=== PATIENT | female | born 1985 | race Caucasian/White ===

== ENCOUNTER 2022-12-03 22:31 | Emergency (ER) | payer BC, SELFPAY ==
[2022-12-03 22:35] VITALS: BP 98/56; PULSE 56; RESP 18; TEMP 36.2; O2SAT 98; BMI 30.2
[2022-12-03] MEDS: ACETAMINOPHEN 325 MG TABLET 975 MG PO (22:54)
[2022-12-03] MEDS: SODIUM CHLORIDE 0.9% 1,000 ML 1000 ML IV ×2 (22:55→23:50)
--- NOTE | 2022-12-03 22:57 | DI.US.S_ITS ---
PROCEDURE: US OB <= 14 WEEKS FETUS INDICATIONS: PAIN OUTSIDE/PRIOR DATING DATA: Last menstrual period (LMP): 09/15/2022. LMP-based estimated date of delivery (CARLOS): 06/22/2023. First dating scan (date and location): Today's exam. Estimated date of delivery (CARLOS) from first dating scan: 07/03/2023. TECHNIQUE: Real-time scanning was performed of the fetus and maternal pelvic organs, with image documentation. Endovaginal scanning was also performed to better visualize the fetus and maternal ovaries. COMPARISON: None. FINDINGS: Embryo: Present, measuring 2.8 centimeters, corresponding to 9 weeks 5 days. Heart rate: Absent. Maternal organs: Ovaries not visualized due to gravid uterus and bowel gas. IMPRESSION: Findings diagnostic of demise, given crown-rump length measuring 2.8 centimeters and absent heart tones. We strive to produce accurate, complete, and clear reports of imaging services. To assist us in improving patient care, this report was composed using standard report templates and voice recognition software. Therefore, it may contain abnormal punctuation, insertions and/or omissions. Occasional wrong-word or sound-alike substitutions may occur. Though we review the report and make efforts to correct it, we do recommend that the report be read carefully in proper context to recognize any text inaccuracies. Dictated by: Ciro Velasquez M.D. on 12/04/2022 at 0:12 Approved by: Ciro Velasquez M.D. on 12/04/2022 at 0:14
[2022-12-03] MEDS: MORPHINE 2 MG/ML INJ IV (23:07)
[2022-12-03 23:10] VITALS: BP 97/56
[2022-12-03 23:18] VITALS: PULSE 54; RESP 12; O2SAT 99
[2022-12-03 23:21] LABS: Alanine Aminotransferase 17 IU/L (<35); Albumin 4.2 g/dL (3.5-5.0); Albumin Globulin Ratio 1.3 (1.0-2.8); Alkaline Phosphatase 42 U/L (38-126); Aspartate Aminotransferase 23 IU/L (14-36); BUN Creatinine Ratio 20.6 (6-22); Bilirubin Total 0.3 mg/dL (0.2-1.3); Blood Urea Nitrogen 13 mg/dL (7-17); Calcium 8.8 mg/dL (8.4-10.2); Carbon Dioxide 21 mmol/L (22-32); Chloride 103 mmol/L (98-107); Estimated Glomerular Filt Rate > 60 mL/min (>60); Globulin 3.3 g/dL (1.7-4.1); Glucose 134 mg/dL (70-100); HEMOLYSIS < 15 (0-50); Lipase 101 U/L (23-300); Potassium 3.5 mmol/L (3.4-5.1); Sodium 135 mmol/L (137-145); Total Protein 7.5 g/dL (6.3-8.2)
[2022-12-03 23:27] LABS: Add Manual Diff / Slide Review NO; Basophils Absolute Auto 0 /uL (0-100); Basophils Percent Auto 0.3 % (0-2); Eosinophils Absolute Auto 100 /uL (0-450); Hematocrit 37.4 % (36-46); Hemoglobin 12.7 g/dL (12.0-16.0); Lymphocytes Absolute Auto 3200 /uL (1100-4500); Lymphocytes Percent Auto 26.6 % (25-40); Mean Corpuscular Hemoglobin 30.4 PG (26-34); Mean Corpuscular Volume 89.4 fL (80-100); Monocytes Absolute Auto 600 /uL (0-900); Monocytes Percent Auto 5.3 % (3-14); Neutrophils Absolute Auto 8100 /uL (1500-7000); Neutrophils Percent Auto 66.8 % (50-75); Platelet Count 215 X10^3/uL (150-400); Red Blood Cell Count 4.18 X10^6/uL (4.0-5.2); Red Cell Distribution Width 13.4 % (11.6-14.8); White Blood Cell Count 12.2 X10^3/uL (4.5-11.0)
[2022-12-03 23:30] VITALS: BP 95/62; PULSE 57; RESP 15; O2SAT 96
--- NOTE | 2022-12-03 23:35 | ED.PREGNANCY ---
HPI - General Chief complaint: Abdominal Pain Stated complaint: severe cramping, 11 weeks Time Seen by Provider: 12/03/22 22:46 Source: patient Mode of arrival: Wheelchair Limitations: no limitations History of Present Illness HPI Narrative: Patient is a 37-year-old female presenting today with severe abdominal cramping. She denies any bleeding no back pain nausea or vomiting. She is had a couple of was diarrhea but significant. She is not dizzy or lightheaded. She is receiving OB care in [place] [facility] [place] She reports that it came today. Related Data Allergies Allergy/AdvReac Type Severity Reaction Status Date / Time Penicillins Allergy Verified 12/03/22 22:51 Review of Systems Review of Systems ROS Unobtainable: All systems reviewed & are unremarkable except as noted in HPI and below Exam Initial Vital Signs Initial Vital Signs: Vital Signs Temperature 97.1 F L 12/03/22 22:35 Pulse Rate 56 L 12/03/22 22:35 Respiratory Rate 18 12/03/22 22:35 Blood Pressure 98/56 L 12/03/22 22:35 Pulse Oximetry 98 12/03/22 22:35 Oxygen Delivery Method Room Air 12/03/22 22:35 GENERAL: Alert 37-year-old female appears very uncomfortable HEENT: Head atraumatic,EOMI, pupils reactive, face symmetric, moist mucous membranes CARDIOVASCULAR: Regular rate and rhythm without murmurs, rubs or gallops. RESPIRATORY: Breath sounds equal bilaterally, no wheezes rales or rhonchi. ABDOMEN: Soft, mild lower abdominal tenderness EXTREMITIES: Normal range of motion, no clubbing or edema. Neurovascularly intact NEUROLOGICAL: Alert and oriented x4. SKIN: Warm, dry, no laceration, no petechiae, no rashes or lesions. Course Orders Ordered: ED Orders 12/03/22 22:57 US OB <= 14 weeks fetus Stat 12/03/22 23:02 CBC Auto Diff [Complete Blood Count AUTO DIFF] Stat CMP [Comprehensive Metabolic Panel] Stat Lipase Stat 12/04/22 00:07 ABO RH Type Stat 12/04/22 02:28 Hemoglobin and Hematocrit Stat Discontinued Medications Acetaminophen (Acetaminophen 325 Mg Tablet) 975 mg PO NOW ONE Stop: 12/03/22 22:47 Last Admin: 12/03/22 22:54 Dose: 975 mg Documented By: KELLEY Hydromorphone HCl (Hydromorphone 0.5 Mg Inj) 0.5 mg IV NOW ONE Stop: 12/03/22 23:42 Last Admin: 12/03/22 23:50 Dose: 0.5 mg Documented By: KELLEY Hydromorphone HCl (Hydromorphone 0.5 Mg Inj) 0.5 mg IV NOW ONE Stop: 12/04/22 00:42 Last Admin: 12/04/22 00:47 Dose: 0.5 mg Documented By: EL Sodium Chloride (Normal Saline 0.9%) 1,000 mls @ 1,000 mls/hr IV BOLUS ONE Stop: 12/03/22 23:45 Last Infusion: 12/03/22 23:43 Dose: 0 mls/hr Documented By: Admin: 12/03/22 22:55 Dose: 1,000 mls/hr Documented By: KELLEY Sodium Chloride (Normal Saline 0.9%) 1,000 mls @ 1,000 mls/hr IV BOLUS ONE Stop: 12/04/22 00:40 Last Infusion: 12/04/22 01:22 Dose: 0 mls/hr Documented By: Admin: 12/03/22 23:50 Dose: 1,000 mls/hr Documented By: KELLEY Sodium Chloride (Normal Saline 0.9%) 1,000 mls @ 1,000 mls/hr IV BOLUS ONE Stop: 12/04/22 03:19 Last Admin: 12/04/22 02:38 Dose: 1,000 mls/hr Documented By: KELLEY Morphine Sulfate (Morphine 2 Mg/Ml Inj) 2 mg IV NOW ONE Stop: 12/03/22 22:58 Last Admin: 12/03/22 23:07 Dose: 2 mg Documented By: KELLEY Vital Signs Vital signs: Vital Signs - 8 hr 12/03/22 22:35 12/03/22 23:18 12/03/22 23:10 Temperature 97.1 F L Pulse Rate 56 L 54 L Respiratory Rate 18 12 Blood Pressure 98/56 L 97/56 L Pulse Oximetry 98 99 Oxygen Delivery Method Room Air Room Air 12/03/22 23:30 12/03/22 23:30 12/04/22 00:00 Temperature Pulse Rate 57 L Respiratory Rate 15 Blood Pressure 95/62 87/55 L Pulse Oximetry 96 Oxygen Delivery Method Room Air 12/04/22 00:00 12/04/22 00:02 12/04/22 00:02 Temperature Pulse Rate 59 L 62 Respiratory Rate 15 22 Blood Pressure 87/59 L Pulse Oximetry 97 97 Oxygen Delivery Method 12/04/22 00:04 12/04/22 00:04 12/04/22 00:23 Temperature Pulse Rate 66 Respiratory Rate 13 Blood Pressure 88/53 L 100/65 Pulse Oximetry 99 Oxygen Delivery Method Room Air 12/04/22 00:23 12/04/22 00:30 12/04/22 00:32 Temperature Pulse Rate 73 91 H Respiratory Rate 21 27 H Blood Pressure 104/65 Pulse Oximetry 94 97 Oxygen Delivery Method Room Air Room Air 12/04/22 00:32 12/04/22 00:45 12/04/22 00:45 Temperature Pulse Rate 77 74 Respiratory Rate 13 19 Blood Pressure 99/58 L Pulse Oximetry 96 Oxygen Delivery Method Room Air 12/04/22 01:00 12/04/22 01:00 12/04/22 01:20 Temperature Pulse Rate 80 Respiratory Rate 18 Blood Pressure 100/58 L 95/57 L Pulse Oximetry 96 Oxygen Delivery Method Room Air 12/04/22 01:20 12/04/22 01:30 12/04/22 01:40 Temperature Pulse Rate 73 68 Respiratory Rate 14 16 Blood Pressure 91/55 L Pulse Oximetry Oxygen Delivery Method 12/04/22 01:40 12/04/22 02:00 12/04/22 02:00 Temperature Pulse Rate 78 73 Respiratory Rate 17 16 Blood Pressure 91/55 L Pulse Oximetry 95 Oxygen Delivery Method Room Air 12/04/22 02:18 12/04/22 02:18 12/04/22 02:20 Temperature Pulse Rate 75 Respiratory Rate 17 Blood Pressure 89/50 L 89/54 L Pulse Oximetry 93 Oxygen Delivery Method Room Air 12/04/22 02:20 12/04/22 02:27 12/04/22 02:27 Temperature Pulse Rate 71 75 Respiratory Rate 18 15 Blood Pressure 88/50 L Pulse Oximetry 93 Oxygen Delivery Method Room Air 12/04/22 02:30 12/04/22 02:40 12/04/22 02:40 Temperature Pulse Rate 72 69 Respiratory Rate 14 12 Blood Pressure 88/53 L Pulse Oximetry 94 Oxygen Delivery Method Room Air 12/04/22 03:00 12/04/22 03:00 12/04/22 03:19 Temperature Pulse Rate 71 Respiratory Rate 17 Blood Pressure 87/55 L 93/63 Pulse Oximetry 93 Oxygen Delivery Method Room Air 12/04/22 03:19 12/04/22 03:26 12/04/22 03:26 Temperature Pulse Rate 84 78 Respiratory Rate 18 14 Blood Pressure 107/61 Pulse Oximetry 97 96 Oxygen Delivery Method Room Air Room Air MDM - OB/Uterine Contractions Lab Data 12/04/22 02:28 12/03/22 23:02 Labs: Lab Results 12/03/22 12/03/22 12/03/22 Range/Units 23:00 23:02 23:02 WBC 12.2 H (4.5-11.0) X10^3/uL RBC 4.18 (4.0-5.2) X10^6/uL Hgb 12.7 (12.0-16.0) g/dL Hct 37.4 (36-46) % MCV 89.4 (80-100) fL MCH 30.4 (26-34) PG MCHC 34.0 (30-36) % RDW 13.4 (11.6-14.8) % Plt Count 215 (150-400) X10^3/uL Neut % (Auto) 66.8 (50-75) % Lymph % (Auto) 26.6 (25-40) % [place] % (Auto) 5.3 (3-14) % Eos % (Auto) 1.0 L (2-4) % Baso % (Auto) 0.3 (0-2) % Neut # (Auto) 8100 H (0692-6475) /uL Lymph # (Auto) 3200 (1142-0202) /uL [place] # (Auto) 600 (0-900) /uL Eos # (Auto) 100 (0-450) /uL Baso # (Auto) 0 (0-100) /uL Sodium 135 L (137-145) mmol/L Potassium 3.5 (3.4-5.1) mmol/L Chloride 103 (98-107) mmol/L Carbon Dioxide 21 L (22-32) mmol/L BUN 13 (7-17) mg/dL Creatinine 0.63 (0.52-1.04) mg/dL Estimated GFR > 60 (>60) mL/min BUN/Creatinine Ratio 20.6 (6-22) Glucose 134 H (70-100) mg/dL Calcium 8.8 (8.4-10.2) mg/dL Total Bilirubin 0.3 (0.2-1.3) mg/dL AST 23 (14-36) IU/L ALT 17 (<35) IU/L Alkaline Phosphatase 42 (38-126) U/L Total Protein 7.5 (6.3-8.2) g/dL Albumin 4.2 (3.5-5.0) g/dL Globulin 3.3 (1.7-4.1) g/dL Albumin/Globulin Ratio 1.3 (1.0-2.8) Lipase 101 (23-300) U/L Blood Type O Positive 12/04/22 Range/Units 02:28 WBC (4.5-11.0) X10^3/uL RBC (4.0-5.2) X10^6/uL Hgb 10.9 L (12.0-16.0) g/dL Hct 31.6 L (36-46) % MCV (80-100) fL MCH (26-34) PG MCHC (30-36) % RDW (11.6-14.8) % Plt Count (150-400) X10^3/uL Neut % (Auto) (50-75) % Lymph % (Auto) (25-40) % [place] % (Auto) (3-14) % Eos % (Auto) (2-4) % Baso % (Auto) (0-2) % Neut # (Auto) (5584-5795) /uL Lymph # (Auto) (6546-4306) /uL [place] # (Auto) (0-900) /uL Eos # (Auto) (0-450) /uL Baso # (Auto) (0-100) /uL Sodium (137-145) mmol/L Potassium (3.4-5.1) mmol/L Chloride (98-107) mmol/L Carbon Dioxide (22-32) mmol/L BUN (7-17) mg/dL Creatinine (0.52-1.04) mg/dL Estimated GFR (>60) mL/min BUN/Creatinine Ratio (6-22) Glucose (70-100) mg/dL Calcium (8.4-10.2) mg/dL Total Bilirubin (0.2-1.3) mg/dL AST (14-36) IU/L ALT (<35) IU/L Alkaline Phosphatase (38-126) U/L Total Protein (6.3-8.2) g/dL Albumin (3.5-5.0) g/dL Globulin (1.7-4.1) g/dL Albumin/Globulin Ratio (1.0-2.8) Lipase (23-300) U/L Blood Type Imaging Data US - OB: Radiologist's Impression: PROCEDURE:? US OB <= 14 WEEKS FETUS ? INDICATIONS:? PAIN ? OUTSIDE/PRIOR DATING DATA:? Last menstrual period (LMP):? 09/15/2022.? LMP-based estimated date of delivery (CARLOS):? 06/22/2023.? First dating scan (date and location):? Today's exam.? Estimated date of delivery (CARLOS) from first dating scan:? 07/03/2023. ? TECHNIQUE:? Real-time scanning was performed of the fetus and maternal pelvic organs, with image documentation.? Endovaginal scanning was also performed to better visualize the fetus and maternal ovaries.? ? COMPARISON:? None. ? FINDINGS:? ? Embryo:? Present, measuring 2.8 centimeters, corresponding to 9 weeks 5 days. Heart rate:? Absent. ? Maternal organs:? Ovaries not visualized due to gravid uterus and bowel gas. ? ? ? IMPRESSION:? Findings diagnostic of demise, given crown-rump length measuring 2.8 centimeters and absent heart tones. ? We strive to produce accurate, complete, and clear reports of imaging services. To assist us in improving patient care, this report was composed using standard report templates and voice recognition software. Therefore, it may contain abnormal punctuation, insertions and/or omissions. Occasional wrong-word or sound-alike substitutions may occur. Though we review the report and make efforts to correct it, we do recommend that the report be read carefully in proper context to recognize any text inaccuracies. ? Dictated by: Ciro Velasquez M.D. on 12/04/2022 at 0:12 ? MDM Narrative Medical decision making narrative: Patient currently 11 weeks presenting today with severe abdominal cramping no bleeding. Ultrasound confirms demise started having bleeding. Blood pressure is low in the ED in the 90s did drop to the 80s briefly after Dilaudid and morphine which did help with her pain. She is started having significant bleeding with tissue at os, 1230 Dr. Ramirez OB notified patient concern for hypotensive miscarriage and bleeding. He Recommended I used forceps to help remove tissue and products and send for pathology. Tissue in products were removed sent to pathology patient tolerated very well. Pain is improved abdomen is soft nontender. She had up to use the restroom and was dizzy and lightheaded. Blood pressure is 87/55 she is on her 3 L of IV fluids repeat H and H, she has hemoglobin 10.9 hematocrit 41.6 previously 12.7 and 37.4 respectively after 2 L. She is monitored given 1/3 L of fluid finally blood pressure is 107/61, no longer dizzy or lightheaded. She is given instructions of follow-up Critical Care Time Critical Care Time Critical Care Time: Yes Total Critical Care Time: 40 Attestation: The high probability of a clinically significant, sudden or life threatening deterioration of the [cardiovascular] system(s) required my full and direct attention, intervention and personal management. The aggregate critical care time was 40 minutes. This time is in addition to time spent performing reported procedures but includes the following: [x] Data Review and interpretation [x] Patient assessment and monitoring of vital signs [x] Documentation [x] Medication orders and management Discharge Plan Departure Patient Disposition: Home Clinical Impression: Complete miscarriage Instructions: Dealing With Miscarriage, Miscarriage Activity Restrictions/Additional Instructions: *You have been diagnosed with miscarriage *What to do: At this time please call your OB tomorrow and follow-up. You may or may not need any further intervention. Expect to have bleeding and clots however it should be much slower now. *Continue to take medications as directed *Follow up with your primary care provider in 2-3 days or call [phone] *Return to ER if you should have heavy bleeding more than 2 pads in 1 hour, increased pain dizziness lightheadedness passing out fever or any new, worsening or concerning symptoms Stand Alone Forms: Patient Portal/API
[2022-12-03] MEDS: HYDROMORPHONE 0.5 MG INJ IV (23:50)
[2022-12-04] VITALS (20 sets, daily range): BP systolic 87–107; BP diastolic 50–65; PULSE 59–91; RESP 12–27; O2SAT 93–99
[2022-12-04] MEDS: HYDROMORPHONE 0.5 MG INJ IV (00:47)
[2022-12-04 02:34] LABS: Hematocrit 31.6 % (36-46); Hemoglobin 10.9 g/dL (12.0-16.0)
[2022-12-04] MEDS: SODIUM CHLORIDE 0.9% 1,000 ML 1000 ML IV (02:38)
== END 2022-12-04 03:53 | disposition home or self-care (01) ==
PROVIDERS: Emergency Provider Emergency Medicine
DX: O03.9 Complete or unspecified spontaneous abortion without complication (principal); Z3A.11 11 weeks gestation of pregnancy
CPT/HCPCS: 36415; 76801; 76817; 80053; 83690; 85014; 85018; 85025; 86900; 86901; 96361; 96374; 96375; 96376; 99284; J1170; J2270